=== PATIENT | female | born 1980 | race Caucasian/White ===

== ENCOUNTER 2018-10-07 19:27 | Emergency (ER) | payer OTHER ==
--- NOTE | 2018-10-07 20:30 | ED Physician Documentation ---
PD HPI URI - Stated complaint Stated Complaint: COUGH - Chief complaint Chief Complaint: Resp - Additional information Additional information: 37-year-old female presents the emergency department with 3 days of postnasal drip and cough. No reports of wheezing or shortness of breath. No significant improvement with [id number] cough suppressants. The patient denies fevers, body aches, sore throat or headache. Symptoms are described as moderate. Review of Systems Constitutional: denies: Fever, Chills Eyes: denies: Discharge Ears: denies: Foreign body Nose: reports: Rhinorrhea / runny nose, Congestion Throat: denies: Sore throat Cardiac: denies: Chest pain / pressure Respiratory: reports: Cough : denies: Dysuria Musculoskeletal: denies: Neck pain Neurologic: denies: Generalized weakness PD PAST MEDICAL HISTORY - Past Medical History Past Medical History: Yes Cardiovascular: None Respiratory: None Endocrine/Autoimmune: None GI: None GASOLINE SERVICE ATTENDANT: None : None HEENT: None Psych: ADD/ADHD Musculoskeletal: None Derm: None - Past Surgical History Past Surgical History: Yes HEENT: Tonsil/Adenoidectomy - Present Medications Home Medications: Ambulatory Orders Medication Instructions Recorded Confirmed Amoxicillin/Potassium Clav 1 each PO BID #14 tablet 11/24/14 [Augmentin 875-125 Tablet] Cholecalciferol (Vitamin D3) 2,000 unit PO DAILY 11/24/14 11/24/14 [Vitamin D-3] Loratadine [Claritin] 10 mg PO ONCE PRN 11/24/14 11/24/14 Multivitamin with Minerals [Hair, 1 each PO DAILY 11/24/14 11/24/14 Skin & Nails] Benzonatate [Tessalon Perle] 100 mg PO TID PRN #30 capsule 10/07/18 - Allergies Allergies/Adverse Reactions: Allergies Allergy/AdvReac Type Severity Reaction Status Date / Time No Known Drug Allergies Allergy Verified 10/07/18 19:31 - Social History Does the pt smoke?: No Smoking Status: Never smoker Does the pt drink ETOH?: Yes Does the pt have substance abuse?: No - Immunizations Immunizations are current?: Yes PD ED PE NORMAL - General General: Alert and oriented X 3, No acute distress - HEENT HEENT: Atraumatic, PERRL, EOMI, Ears normal, Moist mucous membranes - Neck Neck: Supple, no meningeal sign - Cardiac Cardiac: RRR, Strong equal pulses - Respiratory Respiratory: No respiratory distress - Derm Derm: Normal color - Extremities Extremities: No deformity, No edema - Neuro Neuro: Alert and oriented X 3, Normal speech - Psych Psych: Normal affect Results - Vitals Vitals: Vital Signs - 24 hr 10/07/18 19:30 Temperature 36.2 C L Heart Rate 95 Respiratory 16 Rate Blood Pressure 135/80 H O2 Saturation 97 Oxygen O2 Source Room air PD MEDICAL DECISION MAKING - ED course ED course: The patient's symptoms appear to represent a viral process, on physical exam there is no evidence of respiratory distress, wheezing, clinical pneumonia or acute otitis media. The patient currently appears appropriate for discharge and ongoing outpatient management with symptomatic therapy. The patient will follow up with primary care. The patient will return to the emergency department for any worsening or any concerns Departure - Departure Disposition: 01 Home, Self Care Clinical Impression: Viral URI with cough Condition: Good Instructions: ED Upper Resp Infec No Abx Tx Prescriptions: Benzonatate [Tessalon Perle] 100 mg PO TID PRN #30 capsule PRN Reason: Cough Comments: Please follow-up with primary care for recheck and reevaluation Please return to the emergency department for any worsening or any concerns
[2018-10-07] MEDS ORDERED: NAPROXEN 250 MG TABLET PO STA (20:36)
[2018-10-07] MEDS ORDERED: BENZONATATE 100 MG CAPSULE PO STA (20:36)
[2018-10-07] MEDS ORDERED: diphenhydrAMINE 25 MG CAPSULE PO STA (20:37)
[2018-10-07 20:54] VITALS: BP 132/92
== END 2018-10-07 20:54 | disposition home or self-care (01) ==
LOC: ED 19:27
DX: J06.9 Acute upper respiratory infection, unspecified (principal)
CPT/HCPCS: 99283; A9270

== ENCOUNTER 2023-01-13 15:40 | Outpatient (CLI) | payer OTHER ==
--- NOTE | 2023-01-13 16:28 | SLEEP CARE CONSULTATION ---
Information from patient questionnaire entered by Libby Mcdowell. I have reviewed and concur with the information entered by Libby Mcdowell. This document represents the service I personally performed and the decisions made by me, Romi Kelley ARNP. History of Present Illness Service Date and Time: 01/13/2023 1540 Reason for Visit: New patient (Initial) Chief Complaint: reports: Unrefreshed sleep, Excessive daytime sleepiness, Fatigue Date of Onset: long time Usual bedtime: 8-9:30 PM Time it takes to fall asleep: 20-30 minutes Snores at night: Yes Observed to quit breathing while asleep: No Sleeps alone due to snoring: No Number of times waking at night: 1-2 Reasons for waking at night: reports: Bathroom, Other (noise, unknown reasons). denies: Choking, Snoring, Gasping for air Toss, Turn, or Twitch while sleeping: Yes Recalls having dreams: No (sometimes does, depends) Usually gets out of bed at: 1730-1033 Feels refreshed in the morning: No Morning headache: No Sleepy or fatigued during the day: Yes Ever fallen asleep while driving: No (some drowsy driving, long distance driving mostly) Takes day naps: Yes (rare occurance) Dreams during day naps: Yes Prior sleep studies: No Additional HPI information: I had the pleasure of seeing LORRI HAGEN today regarding the possibility of her having a sleep disorder. Her current complaints are excessive daytime sleepiness, fatigue and unrefreshed sleep. She states she is tired all the time. She has been told that she snores but her has not said she had any pauses in breathing. She states that he is wearing his own CPAP and does not think he pays attention. She does not ever feel rested in the morning, feels like she needs more sleep after 7-8 hours of sleep on average. She rarely remembers dreaming. She has occasionally hit her during sleep because she has PTSD. - Parasomnia Symptoms Ever been unable to move upon waking from sleep: No Walks in sleep: No Talks in sleep: No Ever acted out dreams in sleep: Yes (has PTSD, will hit spouse when asleep; not in a long time) Ever felt weak in the knees when startled or emotional: No Bothered by creepy, crawly, restless sensations in legs: No Problems with memory or concentration: Yes (both, all the time; has ADD but stopped meds) Subjective Initial Hustler Sleepiness Scale score: 13 (01/13/2023) Past Medical History Past Medical History: reports: Hypothyroidism, Anxiety, Mood disorder (PTSD), Attention deficit Social History The patient's occupation is a [employer]. Patient is and lives in [place]. Have you smoked in the past 12 months: No Quit date: 21 years ago Alcohol use: No Caffeine use: Yes Caffeine amount and frequency: 1 cup, daily Family History Family history of sleep disordered breathing: Yes Family Hx Sleep Apnea: Mother: Snoring, Father: Snoring Allergies and Home Medications Known drug allergies: Yes (terbinafine) Drug allergies reviewed: Yes Home medication list reviewed: Yes Allergy and home medication list: Allergies No Known Drug Allergies Allergy Medications: Levothyroxine 50 mcg daily Apple Cider vinegar Vitamin D3 B12 Milk thistle AZo Probiotic Collagen Peptides Review of Systems Cardiovascular: denies: high blood pressure Gastrointestinal: reports: heartburn, abdominal pain Neurological: reports: headaches Ear/Nose/Throat: reports: nasal congestion, tonsillectomy, wisdom teeth removed Endocrine: reports: thyroid disease, too hot or cold Immunologic: reports: sneezing Physical Exam Vital signs obtained and entered by: Romi Boggs NP Blood Pressure: 126/81 Cuff size: wrist (right) Heart Rate: 81 O2 Saturation: 99 Height: 5 ft 3 in Weight: 162 lb Body Mass Index: 28.7 BMI Classification: Overweight Neck circumference: 14.5 Mouth and throat: narrow oropharynx Soft palate: long Hard palate: normal Uvula: normal Uvula visualization: 25% Mallampati Class III Tongue: enlarged in size with teeth brady on lateral edges Tonsils: absent bilaterally Neck: normal w/o lymphadenopathy or thyromegaly Heart: regular rate and rhythm Lungs: clear bilaterally Impression and Plan 1. Suspected Obstructive Sleep Apnea-Hypopnea Syndrome, as suggested by a history of loud and irregular snoring, unrefreshed sleep, cognitive impairment, and excessive daytime sleepiness. Narrow oropharynx and obesity are common predisposing factors for obstructive sleep apnea-hypopnea syndrome. I recommend proceeding to polysomnography to confirm the diagnosis and to assess severity. If the patient has significant sleep disordered breathing, a manual CPAP titration study will also be performed to find the optimal treatment pressure. I informed the patient of what the sleep studies involve and after some discussion, obtained agreement to proceed. The pathophysiology of obstructive sleep apnea-hypopnea syndrome was discussed with the patient and health risks of cardiovascular and cerebrovascular disease if not treated. Risks of drowsy driving discussed in detail and patient advised to avoid long distance driving and to stock puller at the first sign of drowsiness. Patient agreed to plan. * Schedule polysomnography +- manual CPAP titration study and return in 1-2 weeks after the study to discuss result and initiate therapy. * Avoid long distance driving or driving when feeling sleepy. * Avoid alcohol, sedative and muscle relaxant around bedtime. * Attempt to lose weight. * Review instructions provided by trained office staff on how to prepare for the sleep study. * Return for follow-up after sleep study completed. Counseling Topics: Weight loss health impact Visit Type: In Office Time Spent with Patient (minutes): 31 Provider Statement: I spent 100% of the Face to Face Visit with the patient with greater than 50% spent counseling the patient and coordination of care.
[2023-01-13 16:29] VITALS: BP 126/81
== END 2023-01-13 15:41 | disposition home or self-care (01) ==
LOC: SC 15:40
PROVIDERS: ATTEND Nurse Practitioner Family
DX: R06.83 Snoring (principal); G47.8 Other sleep disorders; R06.81 Apnea, not elsewhere classified; G47.10 Hypersomnia, unspecified; R53.83 Other fatigue; E66.3 Overweight; Z68.28 Body mass index [BMI] 28.0-28.9, adult
CPT/HCPCS: 99203; 99212

== ENCOUNTER 2023-02-05 20:00 | Outpatient (CLI) | payer OTHER | END 2023-02-05 20:01 | disposition home or self-care (01) | LOC: SC 20:00 | PROVIDERS: ATTEND Nurse Practitioner Family | DX: G47.33 Obstructive sleep apnea (adult) (pediatric) (principal); E66.3 Overweight; Z68.28 Body mass index [BMI] 28.0-28.9, adult | CPT/HCPCS: 95810 ==

== ENCOUNTER 2023-02-23 12:31 | Outpatient (CLI) | payer OTHER ==
--- NOTE | 2023-02-23 13:15 | Sleep Patient Instructions ---
Sleep Center Visit Summary - Patient Visit Information Reason for Visit: Sleep study followup - Patient Instructions Instructions Attached: Apnea Sleep Mouthpieces Additional Instructions: You have opted for an oral mandibular appliance to control your sleep apnea. A list of certified dentists in the area was provided for you to find a dentist to have your oral appliance made. Once you have the device, please call and make a follow up appointment. We need to see you after you have been using the appliance for a month. We will evaluate your response to therapy and order a follow up sleep study to check efficiency of treatment. Please call office to set up a follow up in the sleep care office one month after obtaining new device. - Clinic Information Contact: [facility] [address] [place] [address] [email or web address] T: [phone]
--- NOTE | 2023-02-23 13:18 | SLEEP CARE CONSULTATION ---
Information from patient questionnaire entered by Monica Londono. I have reviewed and concur with the information entered by Monica Londono. This document represents the service I personally performed and the decisions made by , Romi Kelley ARNP. History of Present Illness Service Date and Time: 02/23/2023 1231 Initial Kemp Sleepiness Scale score: 13 (01/13/2023) Current Kemp Sleepiness Scale score: 14 (02/23/23) Additional HPI information: LORRI HAGEN returns for follow up and results of the recently performed polysomnography. PSG showed mild obstructive sleep apnea with an average AHI of 6.6 and john oxygen saturation of 81%. I explained the pathophysiology behind obstructive sleep apnea. We then spent quite a bit of time discussing different treatment options. For mild obstructive sleep apnea, surgery and oral appliance are alternatives to nasal CPAP therapy but in moderate or severe cases, nasal CPAP is the most effective and reliable treatment. Because apnea is primarily in supine position, then positional management therapy could be effective. Methods discussed such as positioning with pillows, using a T-shirt with tennis balls in the back or commercial products that have a pillow format on back to prevent supine sleep. I reviewed the impact of weight changes on sleep apnea and strongly recommended losing weight. Patient does not drink alcohol. Patient was cautioned about risks of drowsy driving until sleepiness symptoms resolve. Patient has drowsy driving with long distance driving. Sleep Study - Results Type of Sleep Study: Polysomnography (COMPLETED 02/05/23) Prior sleep studies: No Polysomnography/Home Sleep Study results: IMPRESSION: The quality of the study is good. The patient had slightly reduced sleep efficiency due to a prolonged awakening in the second half of the night. The sleep architecture was abnormal for sleep fragmentation and reduced amount of time spent in slow wave sleep (N3). Respiratory monitoring showed mild obstructive sleep apnea-hypopnea (AHI = 6.6) associated with frequent arousals, oxyhemoglobin desaturation and mild hypoxia (john oxygen saturation of 81%). The respiratory events occurred only during supine sleep (supine AHI = 19.2; nonsupine = 0.00). Snore was infrequent and light in intensity. There was no significant periodic leg movement of sleep. Cardiac rhythm was normal sinus rhythm without significant arrhythmia. No abnormal behavior (parasomnia) observed during the night. Allergies and Home Medications Known drug allergies: Yes (terbinafine) Drug allergies reviewed: Yes Home medication list reviewed: Yes (no changes) Allergy and home medication list: Allergies terbinafine Adverse Reaction (Verified 02/22/23 13:47) Review of Systems Review of systems same as previous: Yes (no changes) Physical Exam Vital signs obtained and entered by: MONICA Perry MA Blood Pressure: 132/82 (LEFT ARM) Cuff size: regular Heart Rate: 84 O2 Saturation: 99 Height: 5 ft 3 in Weight: 163 lb 6.4 oz Body Mass Index: 28.9 BMI Classification: Overweight Impression and Plan 1. Obstructive Sleep Apnea-Hypopnea Syndrome, mild, with lowest oxygen saturation of 81%. Obviously this is the cause of the patients symptoms of unrefreshed sleep, and excessive daytime sleepiness. Positive pressure therapy could benefit anxiety, PTSD and attention deficit. After discussing her options, including positional therapy, oral device and CPAP therapy, the patient would like to try an oral appliance to treat her apnea. A month follow up will be made to see if appliance has reduced symptoms after she has been using it for at least a month. If so, another polysomnography will be ordered with use of the oral appliance to check efficacy in reducing apnea. Until patient is able to use the oral appliance, positional therapy is advised to avoid supine sleep with pillow positioning or one of the commercial products because apnea is more severe supine. She voiced understanding and agreement with plan of care. * Oral appliance * Continue to try to lose weight. * Avoid supine sleep until using Oral appliance. * The patient is again cautioned about driving until sleepiness completely resolves. * Return one month after oral appliance obtained. I will assess response to therapy at that time and order followup PSG. Counseling Topics: Sleeping position, Weight loss health impact Visit Type: In Office Time Spent with Patient (minutes): 23 Provider Statement: I spent 100% of the Face to Face Visit with the patient with greater than 50% spent counseling the patient and coordination of care.
[2023-02-23 13:23] VITALS: BP 132/82
== END 2023-02-23 12:32 | disposition home or self-care (01) ==
LOC: SC 12:31
PROVIDERS: ATTEND Nurse Practitioner Family
DX: G47.33 Obstructive sleep apnea (adult) (pediatric) (principal); E66.3 Overweight; Z68.28 Body mass index [BMI] 28.0-28.9, adult
CPT/HCPCS: 99212; 99213